=== PATIENT | female | born 1935 | race Caucasian/White ===

== ENCOUNTER 2017-10-17 16:14 | Emergency (ER) | payer MEDICARE, BC ==
[2017-10-17 16:15] VITALS: BP 133/63; PULSE 85; RESP 18; TEMP 97.8; O2SAT 95
[2017-10-17 17:51] LABS: PROTHROMBIN TIME - PATIENT 9.7 SEC (9.8-11.6)
[2017-10-17 17:58] LABS: BICARBONATE 30.3 MEQ/L (21.0-32.0); BLOOD UREA NITROGEN 23 MG/DL (7-18); CALCIUM 8.5 MG/DL (8.5-10.1); CHLORIDE 105 MEQ/L (98-107); CREATININE 1.05 MG/DL (0.50-1.00); GLOMERULAR FILTRATION RATE 50 ML/MIN (>89); GLUCOSE,RANDOM 97 MG/DL (74-106); MAGNESIUM 1.5 MG/DL (1.5-2.5); SODIUM (NA) 140 MEQ/L (136-145)
[2017-10-17 18:03] LABS: TROPONIN I LESS THAN 0.02 NG/ML (0.02-0.05)
--- NOTE | 2017-10-17 18:06 | RADRPT ---
EXAM DATE/TIME: 10/17/2017 17:24 [place] COMPARISON: No previous studies available for comparison. INDICATIONS : Patient complains of shortness of breath and productive cough. MEDICAL HISTORY : Asthma. SURGICAL HISTORY : None. ENCOUNTER: Initial ACUITY: 2 weeks PAIN SCORE: 3/10 LOCATION: chest FINDINGS: PA and lateral views of the chest demonstrate the lungs to be symmetrically aerated without evidence of mass, infiltrate or effusion. No evidence of pneumothorax. The cardiomediastinal contours are un remarkable. Osseous structures are intact. CONCLUSION: The lungs are clear. Kevin Celestin MD on October 17, 2017 at 18:04 Board Certified Radiologist. This report was verified electronically.
[2017-10-17 18:20] VITALS: BP 143/67; PULSE 74; RESP 18; O2SAT 95; O2SAT 97
[2017-10-17] MEDS ORDERED: ATOR10TA15 PO (18:34)
[2017-10-17] MEDS ORDERED: LOSA25TA PO (18:34)
[2017-10-17] MEDS ORDERED: OMEP20TA93 PO (18:34)
[2017-10-17] MEDS ORDERED: VITA1000 PO (18:34)
[2017-10-17] MEDS ORDERED: VENTAER INH (18:34)
[2017-10-17] MEDS ORDERED: ADVA100A INH (18:34)
[2017-10-17] MEDS ORDERED: APIX2.5T PO (18:34)
[2017-10-17] MEDS ORDERED: SODIUM CHLORID 0.9% 500 ML INJ 500 ML IV ONE (18:45)
[2017-10-17] MEDS ORDERED: SODIUM CHLORIDE 0.9% FLUSH 10 ML FLUSH IVF PRN (18:45)
[2017-10-17 19:00] VITALS: O2SAT 98
[2017-10-17] MEDS ORDERED: methylPREDNISolone SOD SUCC 125 MG/2 ML VIAL IV PUSH ONE (19:00)
[2017-10-17] MEDS: RESP: ALBUTEROL 2.5 MG/IPRATROPIUM 0.5 MG NEB (SCH) INH (19:05)
--- NOTE | 2017-10-17 20:10 | PD ---
HPI Chief Complaint: Respiratory Symptoms Time Seen by Provider: 18:40 Travel History International Travel<30 days: No Contact w/Intl Traveler<30days: No Traveled to known affect area: No History of Present Illness HPI 82-year-old female with PMH of asthma presents to the ED for evaluation presents to the ED for evaluation of 2 week history of worsening dry cough and shortness of breath. Patient endorses gradual onset of pleuritic pain with coughing. She denies fever, chills, sinus congestion, rhinorrhea, chest pain, palpitations, abdominal pain, nausea, vomiting. She did not receive this years flu vaccine. She states that she went to [facility] and is currently taking an unknown antibiotic and 10 mg prednisone daily. States she had a negative flu swab at that time. She states despite this treatment she is had no improvement of her symptoms. She denies cardiac history. She states "this is an asthma attack." PFSH Past Medical History Hx Anticoagulant Therapy: Yes (ELOQUIS) Cardiovascular Problems: Yes (AFIB) High Cholesterol: Yes COPD: Yes GERD: Yes Hypertension: Yes Respiratory: Yes (ASTHMA) Past Surgical History Abdominal Surgery: Yes (colon ca, tumor removed) Appendectomy: Yes Social History Alcohol Use: Yes (rarely) Tobacco Use: No Substance Use: No Allergies-Medications (Allergen,Severity, Reaction): Coded Allergies: No Known Allergies (Unverified , 10/17/17) Reported Meds & Prescriptions Reported Meds & Active Scripts Active Prednisone 20 Mg Tab 20 Mg PO DAILY 5 Days Reported Eliquis (Apixaban) 2.5 Mg Tab Unknown Dose PO BID Ventolin Hfa 18 GM Inh (Albuterol Sulfate) 90 Mcg/Act Aer 1 Puff INH Q4H PRN Vitamin D-1000 (Cholecalciferol) 1,000 Unit Tab Unknown Dose PO DAILY Omeprazole 20 Mg Tab 20 Mg PO DAILY Atorvastatin (Atorvastatin Calcium) 10 Mg Tab Unknown Dose PO HS Losartan (Losartan Potassium) 25 Mg Tab Unknown Dose PO DAILY Advair Diskus Inh (Fluticasone-Salmeterol Inh) 100-50 Mcg/Blist Aer 1 Puff INH BID Rinse mouth after use. Review of Systems Except as stated in HPI: all other systems reviewed are Neg Physical Exam Narrative GENERAL: Well-nourished, well-developed white female in no acute distress. SKIN: Focused skin assessment warm/dry. HEAD: Normocephalic. EYES: No scleral icterus. No injection or drainage. NECK: Supple, trachea midline. No JVD or lymphadenopathy. CARDIOVASCULAR: Regular rate and rhythm without murmurs, gallops, or rubs. RESPIRATORY: Breath sounds equal bilaterally. Mild end expiratory wheezing. No accessory muscle use. GASTROINTESTINAL: Abdomen soft, non-tender, nondistended. MUSCULOSKELETAL: No cyanosis, or edema. BACK: Nontender without obvious deformity. No CVA tenderness. Data Data Last Documented VS Vital Signs Date Time Temp Pulse Resp B/P (MAP) Pulse Ox O2 Delivery O2 Flow Rate FiO2 10/17/17 22:03 10/17/17 19:00 98 21 10/17/17 18:20 16 Room Air 10/17/17 18:20 74 10/17/17 16:15 97.8 Orders Orders Electrocardiogram (10/17/17 16:43) Basic Metabolic Panel (Bmp) (10/17/17 16:43) B-Type Natriuretic Peptide (10/17/17 16:43) Ckmb (Isoenzyme) Profile (10/17/17 16:43) Complete Blood Count With Diff (10/17/17 16:43) Magnesium (Mg) (10/17/17 16:43) Prothrombin Time / Inr (Pt) (10/17/17 16:43) Act Partial Throm Time (Ptt) (10/17/17 16:43) Troponin I (10/17/17 16:43) Chest, Pa & Lat (10/17/17 16:43) Iv Access Insert/Monitor (10/17/17 18:42) Ecg Monitoring (10/17/17 18:42) Oximetry (10/17/17 18:42) Oxygen Administration (10/17/17 18:42) Sodium Chloride 0.9% Flush (Ns Flush) (10/17/17 18:45) Sodium Chlorid 0.9% 500 Ml Inj (Ns 500 M (10/17/17 18:45) Methylprednisolone So Succ Inj (Solumedr (10/17/17 19:00) Albuterol-Ipratropium Neb (Duoneb Neb) (10/17/17 19:00) Ed Discharge Order (10/17/17 21:33) Labs Laboratory Tests Test 10/17/17 16:50 10/17/17 21:06 Prothrombin Time 9.7 SEC Prothromb Time International Ratio 1.0 RATIO Activated Partial Thromboplast Time 25.2 SEC Blood Urea Nitrogen 23 MG/DL Creatinine 1.05 MG/DL Random Glucose 97 MG/DL Calcium Level 8.5 MG/DL Magnesium Level 1.5 MG/DL Sodium Level 140 MEQ/L Potassium Level 3.4 MEQ/L Chloride Level 105 MEQ/L Carbon Dioxide Level 30.3 MEQ/L Anion Gap 5 MEQ/L Estimat Glomerular Filtration Rate 50 ML/MIN Total Creatine Kinase 76 U/L Troponin I LESS THAN 0.02 NG/ML B-Type Natriuretic Peptide 35 PG/ML White Blood Count 4.2 TH/MM3 Red Blood Count 3.06 MIL/MM3 Hemoglobin 9.7 GM/DL Hematocrit 27.8 % Mean Corpuscular Volume 90.6 FL Mean Corpuscular Hemoglobin 31.8 PG Mean Corpuscular Hemoglobin Concent 35.0 % Red Cell Distribution Width 13.1 % Platelet Count 133 TH/MM3 Mean Platelet Volume 8.6 FL Neutrophils (%) (Auto) 85.8 % Lymphocytes (%) (Auto) 8.6 % Monocytes (%) (Auto) 5.1 % Eosinophils (%) (Auto) 0.4 % Basophils (%) (Auto) 0.1 % Neutrophils # (Auto) 3.6 TH/MM3 Lymphocytes # (Auto) 0.4 TH/MM3 Monocytes # (Auto) 0.2 TH/MM3 Eosinophils # (Auto) 0.0 TH/MM3 Basophils # (Auto) 0.0 TH/MM3 CBC Comment DIFF FINAL Differential Comment MDM Medical Decision Making Medical Screen Exam Complete: Yes Emergency Medical Condition: Yes Differential Diagnosis Asthma exacerbation versus viral syndrome versus bronchitis versus other Narrative Course 82-year-old female with PMH of asthma presents to the ED for evaluation presents to the ED for evaluation of 2 week history of worsening dry cough and shortness of breath. Patient endorses gradual onset of pleuritic pain with coughing. She denies fever, chills, sinus congestion, rhinorrhea, chest pain, palpitations, abdominal pain, N/V. She is currently taking an unknown antibiotic and 10 mg prednisone daily. States she had a negative flu swab this week. She denies cardiac history. She states "this is an asthma attack." She endorses sneezing and allergy symptoms as well. Vitals reviewed. Physical exam reveals a nontoxic-appearing white female in no acute distress. Patient was administered IV Solu-Medrol, DuoNeb, 500 mL's normal saline IV. CXR: Lungs are clear per radiology read.. Calcium Level 8.5, Magnesium Level 1.5 10/17/17 21:06 On recheck patient reports improvement of her symptoms. She states that she's hold her primary care provider and was prescribed Brio. She is instructed to DC the prednisone she is taking currently. She is prescribed 20 mg 5 days. She is instructed to continue with rescue inhaler, had a third generation antihistamine to her daily medication routine, return for worsening symptoms. Patient indicated understanding of her structures and is agreeable care plan. Patient is stable and discharged home. Diagnosis Primary Impression: Asthma exacerbation Qualified Codes: J45.21 - Mild intermittent asthma with (acute) exacerbation Additional Impression: Environmental allergies Referrals: Primary Care Physician Additional Instructions: Rest, hydrate. Continue rescue inhaler as previously prescribed. Continue Brio every morning as prescribed. Consider taking a daily antihistamine such as Zyrtec or Claritin or Lisa to reduce symptoms. Take prednisone as prescribed. Follow-up with your primary care provider. Return to the ED for worsening symptoms or any urgent or emergent medical condition. Med/Other Pt SpecificInfo: Prescription(s) given Scripts Prednisone (Prednisone) 20 Mg Tab 20 MG PO DAILY for 5 Days, #5 TAB 0 Refills Prov: Robert Crowder MD 10/17/17 Disposition: 01 DISCHARGE HOME Condition: Stable Elidia Persaud Oct 17, 2017 20:10
[2017-10-17] MEDS ORDERED: PRED20 PO (20:46)
[2017-10-17 21:25] LABS: AUTOMATED NEUTROPHIL # 3.6 TH/MM3 (1.8-7.7); BASOPHIL % 0.1 % (0.0-2.0); EOSINOPHIL % 0.4 % (0.0-4.0); HEMATOCRIT 27.8 % (35.0-46.0); HEMOGLOBIN 9.7 GM/DL (11.6-15.3); LYMPH % 8.6 % (9.0-44.0); LYMPHOCYTE # 0.4 TH/MM3 (1.0-4.8); MEAN CELL VOLUME 90.6 FL (80.0-100.0); MEAN CORPUSCULAR HEMOGLOBIN 31.8 PG (27.0-34.0); MEAN PLATELET VOLUME 8.6 FL (7.0-11.0); MONO % 5.1 % (0.0-8.0); MONOCYTE # 0.2 TH/MM3 (0-0.9); NEUT % 85.8 % (16.0-70.0); PLATELET COUNT 133 TH/MM3 (150-450); RED BLOOD COUNT 3.06 MIL/MM3 (4.00-5.30); RED CELL DISTRIBUTION WIDTH 13.1 % (11.6-17.2); WHITE BLOOD COUNT 4.2 TH/MM3 (4.0-11.0)
--- NOTE | 2017-10-17 21:46 | PD ---
Data Data Last Documented VS Vital Signs Date Time Temp Pulse Resp B/P (MAP) Pulse Ox O2 Delivery O2 Flow Rate FiO2 10/17/17 22:03 10/17/17 19:00 98 21 10/17/17 18:20 16 Room Air 10/17/17 18:20 74 10/17/17 16:15 97.8 Orders Orders Electrocardiogram (10/17/17 16:43) Basic Metabolic Panel (Bmp) (10/17/17 16:43) B-Type Natriuretic Peptide (10/17/17 16:43) Ckmb (Isoenzyme) Profile (10/17/17 16:43) Complete Blood Count With Diff (10/17/17 16:43) Magnesium (Mg) (10/17/17 16:43) Prothrombin Time / Inr (Pt) (10/17/17 16:43) Act Partial Throm Time (Ptt) (10/17/17 16:43) Troponin I (10/17/17 16:43) Chest, Pa & Lat (10/17/17 16:43) Iv Access Insert/Monitor (10/17/17 18:42) Ecg Monitoring (10/17/17 18:42) Oximetry (10/17/17 18:42) Oxygen Administration (10/17/17 18:42) Sodium Chloride 0.9% Flush (Ns Flush) (10/17/17 18:45) Sodium Chlorid 0.9% 500 Ml Inj (Ns 500 M (10/17/17 18:45) Methylprednisolone So Succ Inj (Solumedr (10/17/17 19:00) Albuterol-Ipratropium Neb (Duoneb Neb) (10/17/17 19:00) Ed Discharge Order (10/17/17 21:33) Labs Laboratory Tests Test 10/17/17 16:50 10/17/17 21:06 Prothrombin Time 9.7 SEC Prothromb Time International Ratio 1.0 RATIO Activated Partial Thromboplast Time 25.2 SEC Blood Urea Nitrogen 23 MG/DL Creatinine 1.05 MG/DL Random Glucose 97 MG/DL Calcium Level 8.5 MG/DL Magnesium Level 1.5 MG/DL Sodium Level 140 MEQ/L Potassium Level 3.4 MEQ/L Chloride Level 105 MEQ/L Carbon Dioxide Level 30.3 MEQ/L Anion Gap 5 MEQ/L Estimat Glomerular Filtration Rate 50 ML/MIN Total Creatine Kinase 76 U/L Troponin I LESS THAN 0.02 NG/ML B-Type Natriuretic Peptide 35 PG/ML White Blood Count 4.2 TH/MM3 Red Blood Count 3.06 MIL/MM3 Hemoglobin 9.7 GM/DL Hematocrit 27.8 % Mean Corpuscular Volume 90.6 FL Mean Corpuscular Hemoglobin 31.8 PG Mean Corpuscular Hemoglobin Concent 35.0 % Red Cell Distribution Width 13.1 % Platelet Count 133 TH/MM3 Mean Platelet Volume 8.6 FL Neutrophils (%) (Auto) 85.8 % Lymphocytes (%) (Auto) 8.6 % Monocytes (%) (Auto) 5.1 % Eosinophils (%) (Auto) 0.4 % Basophils (%) (Auto) 0.1 % Neutrophils # (Auto) 3.6 TH/MM3 Lymphocytes # (Auto) 0.4 TH/MM3 Monocytes # (Auto) 0.2 TH/MM3 Eosinophils # (Auto) 0.0 TH/MM3 Basophils # (Auto) 0.0 TH/MM3 CBC Comment DIFF FINAL Differential Comment MDM Medical Record Reviewed: Yes Supervised Visit with JESSIE: Yes Narrative Course I, Dr. Crowder, have reviewed the advance practice practitioner's documentation and am in agreement, met with the patient face to face, made the diagnosis, and the medical decision making was done by me. *My assessment and Findings: Patient ambulatory here with an O2 sat of 96% on room air upon arrival. Marked subjective improvement also noted. Patient ready for discharge. Vital Signs Date Time Temp Pulse Resp B/P (MAP) Pulse Ox O2 Delivery O2 Flow Rate FiO2 10/17/17 22:03 10/17/17 19:00 98 21 10/17/17 18:20 16 98 Room Air 10/17/17 18:20 74 18 143/67 (92) 97 Room Air 10/17/17 16:15 97.8 85 18 133/63 (86) 95 Diagnosis Primary Impression: Asthma exacerbation Qualified Codes: J45.21 - Mild intermittent asthma with (acute) exacerbation Additional Impression: Environmental allergies Referrals: Primary Care Physician Additional Instruction: Rest, hydrate. Continue rescue inhaler as previously prescribed. Continue Brio every morning as prescribed. Consider taking a daily antihistamine such as Zyrtec or Claritin or Lisa to reduce symptoms. Take prednisone as prescribed. Follow-up with your primary care provider. Return to the ED for worsening symptoms or any urgent or emergent medical condition. Scripts Prednisone (Prednisone) 20 Mg Tab 20 MG PO DAILY for 5 Days, #5 TAB 0 Refills Prov: Robert Crowder MD 10/17/17 Disposition: 01 DISCHARGE HOME Condition: Stable Robert Crowder MD Oct 17, 2017 21:46
--- NOTE | 2017-10-18 08:05 | EKG ---
Date Performed: 10/17/2017 Time Performed: 17:08:13 PTAGE: 82 years EKG: Sinus rhythm LEFT BUNDLE BRANCH BLOCK ABNORMAL ECG NO PREVIOUS TRACING DOCTOR: Samara Guajardo Interpretating Date/Time 10/18/2017 08:02:16
== END 2017-10-17 22:04 | disposition home or self-care (01) ==
LOC: NEPC 16:14
DX: J45.21 Mild intermittent asthma with (acute) exacerbation (principal); Z79.01 Long term (current) use of anticoagulants; E78.00 Pure hypercholesterolemia, unspecified; J44.9 Chronic obstructive pulmonary disease, unspecified; K21.9 Gastro-esophageal reflux disease without esophagitis; I10 Essential (primary) hypertension; R94.31 Abnormal electrocardiogram [ECG] [EKG]
CPT/HCPCS: 71046; 80048; 82550; 83735; 83880; 84484; 85025; 85610; 85730; 93005; 94640; 94664; 96361; 96374; 99285; J2930; J7040